=== PATIENT | male | born 1945 ===

== ENCOUNTER 2019-09-10 08:37 | Outpatient (CLI) | payer OTHER ==
[~2019-09-10 08:37] MED LIST: ASPIR 8181 MG PO; COD LIVER OIL1 EACH PO; METFORMIN HCL500 MG PO; METOPROLOL SUCC50 MG PO; PERCOCET 5/3251 TAB PO; QUINAPRIL-HCTZ1 TA1 PO; TAMS0.4C PO; ZOCOR20 MG PO
== END 2019-09-10 08:42 | disposition home or self-care (01) ==
LOC: SONOGRAMA 08:37
DX: E04.2 Nontoxic multinodular goiter (principal)